=== PATIENT | female | born 1950 | race Native Hawaiian/Other Pacific Islander ===

== ENCOUNTER 2016-11-22 14:23 | Emergency (ER) | payer OTHER ==
[~2016-11-22] VITALS: Ht 165.1 cm; Wt 75.8 kg
[2016-11-22 16:23] VITALS: BP 189/91; TEMP 98.6
== END 2016-11-22 16:28 | disposition home or self-care (01) ==
LOC: ED 14:23
DX: G89.29 Other chronic pain (principal)
CPT/HCPCS: 96372; 99283; J1100

== ENCOUNTER 2017-02-06 13:07 | Outpatient (CLI) | payer OTHER | END 2017-02-06 19:18 | disposition home or self-care (01) | LOC: US 13:07 | DX: R22.42 Localized swelling, mass and lump, left lower limb (principal) ==

== ENCOUNTER 2018-06-08 09:56 | Outpatient (CLI) | payer OTHER | END 2018-06-08 19:44 | disposition home or self-care (01) | LOC: MAMMO 09:56 | DX: Z12.31 Encounter for screening mammogram for malignant neoplasm of breast (principal) ==

== ENCOUNTER 2018-10-19 00:22 | Emergency (ER) | payer OTHER ==
[~2018-10-19] VITALS: Ht 165.1 cm; Wt 67.1 kg
[2018-10-19] MEDS ORDERED: TRELEGY ELLIPTA1 AER INH (00:55)
[2018-10-19] MEDS ORDERED: PROAIR HFA INH (00:55)
[2018-10-19] MEDS ORDERED: OXYC5TAB53 PO (00:56)
[2018-10-19] MEDS ORDERED: BELBUCA75 MCG BU (00:56)
[2018-10-19] MEDS ORDERED: NEURONTIN800 MG PO (00:57)
[2018-10-19] MEDS ORDERED: METF500T PO (00:57)
[2018-10-19] MEDS ORDERED: AMLODIPINE BESYLATE PO (00:57)
[2018-10-19] MEDS ORDERED: SIMV40TA57 (00:58)
[2018-10-19] MEDS ORDERED: SERT100T PO (00:58)
[2018-10-19] MEDS ORDERED: ZESTRIL40 MG PO (00:59)
[2018-10-19 02:35] VITALS: BP 102/61; TEMP 98.2
== END 2018-10-19 02:35 | disposition home or self-care (01) ==
LOC: ED 00:22
DX: M47.892 Other spondylosis, cervical region (principal); S16.1XXA Strain of muscle, fascia and tendon at neck level, initial encounter
CPT/HCPCS: 96372; 99282; J1885

== ENCOUNTER 2019-06-28 11:34 | Outpatient (CLI) | payer OTHER ==
[~2019-06-28 11:34] MED LIST: AMLODIPINE BESYLATE PO; BELBUCA75 MCG BU; METF500T PO; NEURONTIN800 MG PO; OXYC5TAB53 PO; PROAIR HFA INH; SERT100T PO; SIMV40TA57; TRELEGY ELLIPTA1 AER INH; ZESTRIL40 MG PO
[2019-06-28 15:28] LABS: PLATELET COUNT 286 K/uL (152-353)
[2019-06-28 15:50] LABS: POTASSIUM 3.9 mmol/L (3.6-5.2)
== END 2019-06-28 19:07 | disposition home or self-care (01) ==
LOC: LAB 11:34 → MAMMO 11:34
PROVIDERS: Nurse Practitioner Family
DX: Z00.00 Encounter for general adult medical examination without abnormal findings (principal); Z12.31 Encounter for screening mammogram for malignant neoplasm of breast; Z79.899 Other long term (current) drug therapy; E78.00 Pure hypercholesterolemia, unspecified; E11.9 Type 2 diabetes mellitus without complications; I10 Essential (primary) hypertension; J44.9 Chronic obstructive pulmonary disease, unspecified; E55.9 Vitamin D deficiency, unspecified; R53.82 Chronic fatigue, unspecified; F32.9 Major depressive disorder, single episode, unspecified
CPT/HCPCS: 80053; 80061; 83036; 84439; 84443; 85027

== ENCOUNTER 2019-12-06 11:37 | Outpatient (CLI) | payer OTHER | END 2019-12-06 19:42 | disposition home or self-care (01) | LOC: RAD 11:37 | DX: M25.561 Pain in right knee (principal) ==

== ENCOUNTER 2021-01-15 13:07 | Outpatient (CLI) | payer OTHER | END 2021-01-15 23:59 | disposition home or self-care (01) | LOC: RAD 13:07 → MAMMO 13:07 → RAD 23:59 | PROVIDERS: ATTEND Nurse Practitioner Family | DX: Z13.820 Encounter for screening for osteoporosis (principal); Z12.31 Encounter for screening mammogram for malignant neoplasm of breast; N95.8 Other specified menopausal and perimenopausal disorders ==

== ENCOUNTER 2022-03-17 09:31 | Emergency (ER) | payer OTHER ==
[~2022-03-17] VITALS: Ht 165.1 cm; Wt 68.5 kg
[2022-03-17 09:35] VITALS: TEMP 96.8
[2022-03-17 11:00] VITALS: BP 199/105
== END 2022-03-17 11:00 | disposition home or self-care (01) ==
LOC: ED 09:31
DX: H60.8X1 Other otitis externa, right ear (principal); M62.838 Other muscle spasm
CPT/HCPCS: 96372; 99283; J1885; J2930

== ENCOUNTER 2022-06-22 15:38 | Emergency (ER) | payer OTHER ==
[~2022-06-22] VITALS: Ht 165.1 cm; Wt 68.5 kg
[2022-06-22 16:01] VITALS: TEMP 99.1
[2022-06-22 17:38] VITALS: BP 118/72
== END 2022-06-22 17:43 | disposition home or self-care (01) ==
LOC: ED 15:38
DX: H65.191 Other acute nonsuppurative otitis media, right ear (principal); F17.210 Nicotine dependence, cigarettes, uncomplicated
CPT/HCPCS: 99283

== ENCOUNTER 2023-02-12 14:54 | Outpatient (CLI) | payer OTHER | END 2023-02-12 21:06 | disposition home or self-care (01) | LOC: RAD 14:54 | PROVIDERS: ATTEND Physician Assistant | DX: M25.562 Pain in left knee (principal) ==